=== PATIENT | female | born 1950 | race Caucasian/White ===

== ENCOUNTER 2018-02-22 08:30 | Inpatient (IN) | payer MEDICARE, BC ==
[2018-02-22 09:04] VITALS: BMI 27.4
[2018-03-06] MEDS ORDERED: Sodium Chloride 0.9% 100 ML ONE (06:20)
[2018-03-06] MEDS ORDERED: Fentanyl 100 MCG/2 ML VIAL ONE (06:20)
[2018-03-06] MEDS ORDERED: CEFAZOLIN 2 GM/50 ML BAG ONE (06:20)
[2018-03-06] MEDS ORDERED: Midazolam HCl 2 mg/2 ml Vial ONE (06:20)
[2018-03-06] MEDS ORDERED: Fentanyl 100 MCG/2 ML VIAL SLOW IVP PRN ×2 (06:53)
[2018-03-06] MEDS ORDERED: HYDROcodone/Acetaminophen 10/325 mg Tablet PO PRN ×2 (06:53)
[2018-03-06] MEDS ORDERED: Acetaminophen 325 MG TAB PO PRN (06:53)
[2018-03-06] MEDS ORDERED: Ondansetron PF 4 MG/2 ML Vial IVP PRN ×2 (06:53→07:00)
[2018-03-06] MEDS ORDERED: traMADol HCl 50 MG TAB PO PRN ×3 (06:53→07:00)
[2018-03-06] MEDS ORDERED: Promethazine HCl 25 MG/ML VIAL IM PRN ×2 (06:53→07:00)
[2018-03-06] MEDS ORDERED: diphenhydrAMINE 25 MG CAP PO PRN (06:53)
[2018-03-06] MEDS ORDERED: Zolpidem Tartrate 5 MG TAB PO PRN ×2 (06:53→07:00)
[2018-03-06] MEDS ORDERED: Naloxone HCl 0.4 mg/ml Vial IVP PRN (07:00)
[2018-03-06] MEDS ORDERED: diphenhydrAMINE 50 MG/ML VIAL IM PRN (07:00)
[2018-03-06] MEDS ORDERED: Hydrocerin (Eucerin) Cream 120 gm Jar TOP PRN (07:00)
[2018-03-06] MEDS ORDERED: diphenhydrAMINE 50 MG/ML VIAL IVP PRN (07:00)
[2018-03-06] MEDS ORDERED: Ketorolac Tromethamine 30 MG/ML VIAL IVP PRN (07:00)
[2018-03-06] MEDS ORDERED: Bupivacaine 0.25% 10 ML VIAL EPIDURAL PRN (07:00)
[2018-03-06] MEDS ORDERED: Promethazine HCl 25 MG SUPP PR PRN (07:00)
[2018-03-06] MEDS ORDERED: Naloxone HCl 0.4 mg/ml Vial IV PRN (07:00)
[2018-03-06] MEDS ORDERED: Bupivacaine HCl 0.5%/Epinephrine 1:200,000/PF 30 ml Vial ONE (07:04)
[2018-03-06] MEDS ORDERED: Fentanyl/Bupivacaine 100 ML EPIDURAL ONE (10:28)
[2018-03-06] MEDS ORDERED: Ketorolac Tromethamine 30 MG/ML VIAL ONE (10:47)
--- NOTE | 2018-03-06 11:41 | RAD ---
RIGHT KNEE TWO VIEWS: History: Knee replacement. FINDINGS: Total knee prosthesis is in place without perihardware lucency. Soft tissue gas is apparent. IMPRESSION: Right knee prosthesis is in good radiographic position. POS: [facility]
[2018-03-06] MEDS: Aspirin 81 mg Enteric Coated Tablet PO SCH ×2 (11:57→20:16)
[2018-03-06] MEDS: Multivitamin W/ Minerals 1 TAB PO SCH (11:58)
[2018-03-06] MEDS: Ferrous Gluconate 324 MG TAB PO SCH ×2 (11:58→20:15)
[2018-03-06] MEDS: Sodium Chloride 0.9% 1,000 ML IV SCH ×3 (11:58→17:50)
[2018-03-06] MEDS: Senokot S 8.6-50 MG TAB PO SCH ×2 (11:58→20:16)
--- NOTE | 2018-03-06 12:47 | OP ---
DATE OF PROCEDURE: 03/06/2018 PREOPERATIVE DIAGNOSIS: Degenerative joint disease, bilateral knees. POSTOPERATIVE DIAGNOSIS: Degenerative joint disease, bilateral knees. PROCEDURE: Bilateral total knee arthroplasty. SURGEON: Tahir Deras M.D. MASK DESIGNER: Mandeep Sequeira PA-C. BLOOD LOSS: Minimal. SPECIMEN: None. DRAINS: None. COMPLICATIONS: None. TOURNIQUET TIME: 49 minutes right and 49 minutes left knee. IMPLANTS USED: Vader Triathlon 3 femur, 9 mm CSX3 polyethylene, and a 9 mm #3 tibia and a 29 shahid la on both sides. PROCEDURE IN DETAIL: After informed consent was obtained in the preoperative holding area. The ashley ent was taken to the operative suite where general anesthesia was induced. Once adequate level of ge neral anesthesia was obtained, the patient was positioned and a well-padded tourniquet was placed wale und the left proximal thigh. The left lower extremity was then prepped and draped in the usual steri le fashion. Prior to exsanguination, a time out was called and all members of the surgical team agre ed upon site, surgeon, and patient. The extremity was then exsanguinated and the tourniquet was rais ed. A midline longitudinal incision was then made directly over the patella extending two fingerbrea dths above the superior pole of the patella and two fingerbreadths inferior to the inferior patellar pole of the patella. Deeper subcutaneous layers were dissected sharply and local bleeding was contro lled with Bovie electrocautery. A quad tendon longitudinal split was then made sharply and a median parapatellar arthrotomy was carried out both sharp and with Bovie electrocautery, carried down to one fingerbreadth medial to the tibial tubercle. The knee was then placed into flexion and the patella was everted nicely, and a copious fat pad ectomy was performed allowing for greater exposure of the t ibia. The computer-assisted distal femoral fiducial was then placed and pinned firmly, and the dista l femoral cutting guide was pinned firmly into place. The oscillating saw was then used to remove th e appropriate amount of bone. The 4-in-1 cutting block was then placed on the distal femur and the o scillating saw was used to remove the appropriate amount of bone off of the anterior, posterior, and chamfer cuts. After completion of bone cuts, the anterior cruciate ligament was resected sharply and the posterior cruciate ligament retractor was placed and the tibia was subluxed for better exposure. Partial meniscectomies were carried out, and the tibial computer-assisted fiducial was pinned, and the cutting guide was placed. Oscillating saw was then used to remove the bone with Hohmann retracto rs used to take care and protect the collateral ligaments. After the tibial resection was performed, a laminar veneer lathe operator was placed in between the freshened bone cuts. The knee placed at 90 degrees and further bilateral meniscectomies were carried out, and the curved osteotome and curettage was used t o remove any excess bone spurs in the posterior compartment. The trial femoral component, tibial bas eplate were placed with the appropriate polyethylene trial insert with an appropriate polyethylene sp acer and patellar button. The knee was taken through full range of motion with flexion and extension from 0-90 degrees and patellar broach squarely in the trochlea without any squinting or subluxation noted. The knee was also stable to varus and valgus stressing at 0, 15, 45, and 90 degrees of flexio n. The drawer was negative. All trial components were then removed and the keel punch was used to pr ovide the appropriate defect in the tibia with a mallet. The freshened bone cuts were copiously irri gated with pulsatile lavage of about 1-1/2 liters to remove all excess debris. The freshened bone cu ts were then dried and with suction and lap sponge. The knee was placed in flexion and retractors we re placed to provide access to all bone cuts. Tobramycin impregnated methyl methacrylate cement was then placed on the freshened bone cuts and implants which were malleted firmly into place. Curettage and Reddick elevators were used to remove any excess bone cement. The knee was placed into full exten mitzy and the patellar button was placed under compression, and the cement was allowed to cure. Once completed, the components were again taken through full range of motion and copious irrigation of the knee was carried out with another liter of normal saline. All components were inspected fully with full range of motion and varus and valgus stressing. There was no laxity noted and full extension was observed clinically. Primary closure was accomplished with #2 interrupted Vicryl stitch of the arth rotomy defect. This was oversewn with a #2 running Quill barbed stitch. The gravitational platelet system was then injected into the arthrotomy prior to closure. The subcutaneous layer was then close d with a running 0 barbed Monocryl stitch and skin closure accomplished with a running subcuticular 3 -0 Monocryl barbed Quill stitch and augmented with cement on the skin. Tourniquet was lowered. Good spontaneous return of distal pulses was noted clinically and a sterile dressing was applied to the i ncision. The procedure was terminated without any complications. The patient was awakened in the op erative suite and the tourniquet was removed. PROCEDURE IN DETAIL: After informed consent was obtained in the preoperative holding area. The ashley ent was taken to the operative suite where general anesthesia was induced. Once adequate level of ge neral anesthesia was obtained, the patient was positioned and a well-padded tourniquet was placed wale und the right proximal thigh. The right lower extremity was then prepped and draped in the usual blilie rile fashion. Prior to exsanguination, a time out was called and all members of the surgical team ag ness upon site, surgeon, and patient. The extremity was then exsanguinated and the tourniquet was ra ised. A midline longitudinal incision was then made directly over the patella extending two fingerbr eadths above the superior pole of the patella and two fingerbreadths inferior to the inferior patella r pole of the patella. Deeper subcutaneous layers were dissected sharply and local bleeding was cont rolled with Bovie electrocautery. A quad tendon longitudinal split was then made sharply and a media n parapatellar arthrotomy was carried out both sharp and with Bovie electrocautery, carried down to o ne fingerbreadth medial to the tibial tubercle. The knee was then placed into flexion and the patell a was everted nicely, and a copious fat pad ectomy was performed allowing for greater exposure of the tibia. The computer-assisted distal femoral fiducial was then placed and pinned firmly, and the dis alexa femoral cutting guide was pinned firmly into place. The oscillating saw was then used to remove the appropriate amount of bone. The 4-in-1 cutting block was then placed on the distal femur and the oscillating saw was used to remove the appropriate amount of bone off of the anterior, posterior, an d chamfer cuts. After completion of bone cuts, the anterior cruciate ligament was resected sharply a nd the posterior cruciate ligament retractor was placed and the tibia was subluxed for better exposur e. Partial meniscectomies were carried out, and the tibial computer-assisted fiducial was pinned, an d the cutting guide was placed. Oscillating saw was then used to remove the bone with Hohmann retrac tors used to take care and protect the collateral ligaments. After the tibial resection was performe d, a laminar veneer lathe operator was placed in between the freshened bone cuts. The knee placed at 90 degrees a nd further bilateral meniscectomies were carried out, and the curved osteotome and curettage was used to remove any excess bone spurs in the posterior compartment. The trial femoral component, tibial b aseplate were placed with the appropriate polyethylene trial insert with an appropriate polyethylene spacer and patellar button. The knee was taken through full range of motion with flexion and extensi on from 0-90 degrees and patellar broach squarely in the trochlea without any squinting or subluxatio n noted. The knee was also stable to varus and valgus stressing at 0, 15, 45, and 90 degrees of flex ion. The drawer was negative. All trial components were then removed and the keel punch was used to provide the appropriate defect in the tibia with a mallet. The freshened bone cuts were copiously ir rigated with pulsatile lavage of about 1-1/2 liters to remove all excess debris. The freshened bone cuts were then dried and with suction and lap sponge. The knee was placed in flexion and retractors were placed to provide access to all bone cuts. Tobramycin impregnated methyl methacrylate cement wa s then placed on the freshened bone cuts and implants which were malleted firmly into place. Curetta ge and Reddick elevators were used to remove any excess bone cement. The knee was placed into full ext ension and the patellar button was placed under compression, and the cement was allowed to cure. Onc e completed, the components were again taken through full range of motion and copious irrigation of t he knee was carried out with another liter of normal saline. All components were inspected fully wit h full range of motion and varus and valgus stressing. There was no laxity noted and full extension w as observed clinically. Primary closure was accomplished with #2 interrupted Vicryl stitch of the lauren moctezumatomy defect. This was oversewn with a #2 running Quill barbed stitch. The gravitational platele t system was then injected into the arthrotomy prior to closure. The subcutaneous layer was then ada sed with a running 0 barbed Monocryl stitch and skin closure accomplished with a running subcuticular 3-0 Monocryl barbed Quill stitch and augmented with cement on the skin. Tourniquet was lowered. Go od spontaneous return of distal pulses was noted clinically and a sterile dressing was applied to the incision. The procedure was terminated without any complications. The patient was awakened in the operative suite and the tourniquet was removed, and the patient was taken to the recovery room in sta ble condition.
--- NOTE | 2018-03-06 12:54 | RAD ---
LEFT KNEE 2 VIEWS: HISTORY: Knee replacement. FINDINGS: A left knee prosthesis is in place without perihardware lucency. Tiny metallic density overlies the posterior intercondylar space. Gas and fluid are present within the soft tissues and suprapatellar b ursa. IMPRESSION: Left knee prosthesis is in place. Tiny metallic density just posterior to the intercondylar space. POS: [facility]
[2018-03-06] MEDS: CEFAZOLIN 2 GM/50 ML BAG IVPB SCH ×2 (13:31→21:58)
[2018-03-06] MEDS: Ketorolac Tromethamine 30 MG/ML VIAL IVP SCH ×2 (13:32→21:58)
--- NOTE | 2018-03-06 13:54 | CON ---
DATE OF CONSULTATION: 03/06/2018 HISTORY OF PRESENT ILLNESS: This is a 68-year-old white female with a history of hyperlipidemia who is postop day #0, status post bilateral total knee replacements by Dr. Deras this morning. The proc edure went well. The patient is awake, somewhat sedated, but conversing. No complaints of any pain at this time. PAST MEDICAL HISTORY: Hyperlipidemia, allergies, arthritis, overactive bladder, reflux. PAST SURGICAL HISTORY: 1. x2. 2. Fibroid surgery. 3. Colonoscopy 2009. 4. History of right knee arthroscopy. 5. Endometriosis surgery in 1988. FAMILY HISTORY: Father at 84 with a motor vehicle accident. Mother with history of allergi es. Maternal grandfather with heart disease. SOCIAL HISTORY: She is a nonsmoker. She is . She has 2 daughters. 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 MEDICATIONS: Crestor 5 daily, Protonix 40 daily, Lodine 400 b.i.d. p.r.n. ALLERGIES: None. REVIEW OF SYSTEMS: As above. PHYSICAL EXAMINATION: VITAL SIGNS: Stable, afebrile. Temperature 97.0, blood pressure 90/51. HEENT: Clear. HEART: Regular rate and rhythm. LUNGS: Clear. ABDOMEN: Soft, nontender. EXTREMITIES: With no edema. Knees wrapped with Riley bandages. LABORATORY: None. ASSESSMENT: 1. Postop day #0, status post bilateral total knee replacements. 2. Hyperlipidemia. PLAN: 1. Routine postoperative care. 2. Continue Crestor and Protonix. 3. We will continue to follow.
[2018-03-06] MEDS: diphenhydrAMINE 25 MG CAP PO PRN ×2 (15:40→23:25)
[2018-03-06] MEDS ORDERED: PROPOFOL 200 MG/20 ML VIAL ONE (17:44)
[2018-03-06] MEDS ORDERED: Ondansetron PF 4 MG/2 ML Vial ONE (17:44)
[2018-03-06] MEDS ORDERED: PHENYLEPHRINE-NS 100 MCG/ML 10 ML SYRINGE ONE (17:44)
[2018-03-06] MEDS ORDERED: ePHEDrine/0.9% NaCl/PF SYRINGE 50 mg/10 ml ONE (17:44)
[2018-03-06] MEDS ORDERED: Lidocaine 1% PF 5 ML VIAL ONE (17:44)
[2018-03-06] MEDS: HYDROcodone/Acetaminophen 5/325 mg Tablet PO PRN (20:17)
[2018-03-07] MEDS: Fentanyl/Bupivacaine 100 ML EPIDURAL SCH ×2 (02:26→16:57)
[2018-03-07] MEDS: HYDROcodone/Acetaminophen 5/325 mg Tablet PO PRN ×2 (02:48→09:14)
[2018-03-07 04:23] LABS: Hemoglobin 9.9 g/dL (12.0-16.0); Mean Corpuscular HGB CONC 33.3 g/dL (32.0-36.0); Mean Corpuscular Hemoglobin 30.5 pg (27.0-31.0); Mean Corpuscular Volume 91.6 fL (78.0-98.0); Mean Platelet Volume 7.5 fL (7.4-10.4); Platelet Count 198 thou/uL (130-400); RBC Distribution Width 10.8 % (11.5-14.5); Red Blood Cell (RBC) Count 3.24 mill/uL (4.20-5.40); White Blood Cell (WBC) Count 9.1 thou/uL (4.8-10.8)
[2018-03-07] MEDS: Ketorolac Tromethamine 30 MG/ML VIAL IVP SCH ×3 (06:17→21:24)
[2018-03-07] MEDS: Sodium Chloride 0.9% 1,000 ML IV SCH ×2 (07:23→15:01)
--- NOTE | 2018-03-07 08:03 | PRG ---
DATE OF SERVICE: 03/07/2018 SUBJECTIVE: The patient is doing well postop day #1, status post bilateral total knee replacement. She does complain of pruritus. No complaints of any chest pain or shortness of breath. OBJECTIVE: VITAL SIGNS: Temperature 99.6, pulse 89, respirations 16, pulse oximetry 94, blood pressure 101/56. HEART: Regular rate and rhythm. LUNGS: Clear. ABDOMEN: Soft. EXTREMITIES: With no edema. LABORATORY: White count 9.1, H&H 9.9 and 29.7. ASSESSMENT: 1. Postop day #1, status post bilateral total knee replacement, doing well. 2. Hyperlipidemia. PLAN: 1. Continue routine postop care. 2. PT for today. 3. Continue Crestor and Protonix. 4. We will continue to follow. 5. Benadryl for pruritus.
[2018-03-07] MEDS ORDERED: Prevnar 13-Val Conj/PF 0.5 ML SYRINGE IM ONE (09:00)
[2018-03-07] MEDS: Aspirin 81 mg Enteric Coated Tablet PO SCH ×2 (09:13→21:26)
[2018-03-07] MEDS: Ferrous Gluconate 324 MG TAB PO SCH ×2 (09:13→21:26)
[2018-03-07] MEDS: Multivitamin W/ Minerals 1 TAB PO SCH (09:13)
[2018-03-07] MEDS: Senokot S 8.6-50 MG TAB PO SCH ×2 (09:14→21:25)
[2018-03-07] MEDS: Rosuvastatin 5 MG TAB PO SCH (09:14)
[2018-03-08] MEDS: Sodium Chloride 0.9% 1,000 ML IV SCH ×2 (01:12→08:15)
[2018-03-08 05:27] LABS: Mean Corpuscular HGB CONC 32.3 g/dL (32.0-36.0); Mean Corpuscular Hemoglobin 29.7 pg (27.0-31.0); Mean Corpuscular Volume 91.9 fL (78.0-98.0); Mean Platelet Volume 7.7 fL (7.4-10.4); Platelet Count 186 thou/uL (130-400); RBC Distribution Width 10.8 % (11.5-14.5); Red Blood Cell (RBC) Count 3.37 mill/uL (4.20-5.40); White Blood Cell (WBC) Count 9.3 thou/uL (4.8-10.8)
[2018-03-08] MEDS: Ketorolac Tromethamine 30 MG/ML VIAL IVP SCH ×2 (06:26→15:03)
--- NOTE | 2018-03-08 07:57 | PRG ---
DATE OF SERVICE: 03/08/2018 SUBJECTIVE: Postop day #2 status post bilateral knee replacement. Doing well. Participated in phys ica therapy yesterday. No complaints of any chest pain or shortness of breath. OBJECTIVE: VITAL SIGNS: Temperature 98.1, pulse 102, respirations 18, pulse ox 94, blood pressure 131/59. HEART: Regular rate and rhythm. LUNGS: Clear. ABDOMEN: Soft. EXTREMITIES: With no edema. LABORATORY: H&H 10.0 and 31.0. ASSESSMENT: 1. Postop day #2 status post bilateral total knee replacement. 2. Hyperlipidemia. PLAN: 1. Continue with routine [facility]. 2. Awaiting acceptance to [facility] for further physical therapy. 3. Continue Crestor and Protonix.
[2018-03-08] MEDS: Multivitamin W/ Minerals 1 TAB PO SCH (08:10)
[2018-03-08] MEDS: Senokot S 8.6-50 MG TAB PO SCH (08:10)
[2018-03-08] MEDS: Rosuvastatin 5 MG TAB PO SCH (08:10)
[2018-03-08] MEDS: Aspirin 81 mg Enteric Coated Tablet PO SCH (08:11)
[2018-03-08] MEDS: Ferrous Gluconate 324 MG TAB PO SCH (08:11)
[2018-03-08] MEDS: HYDROcodone/Acetaminophen 5/325 mg Tablet PO PRN (11:23)
[2018-03-08 11:55] VITALS: BP 114/62; TEMP 97.9
[2018-03-08] MEDS ORDERED: HYDROcodone/Acetaminophen 10/325 mg Tablet PO PRN ×2 (12:26→12:27)
== END 2018-03-08 15:23 | DRG 462 ==
LOC: SURG A 03-06 05:34
PROVIDERS: ADMIT Orthopaedic Surgery; ATTEND Orthopaedic Surgery
PROC: 0SRD0J9 Replacement of Left Knee Joint with Synthetic Substitute, Cemented, Open Approach (ICD-10-PCS; principal; 2018-03-06)
PROC: 0SRC0J9 Replacement of Right Knee Joint with Synthetic Substitute, Cemented, Open Approach (ICD-10-PCS; 2018-03-06)
PROC: 3E02340 Introduction of Influenza Vaccine into Muscle, Percutaneous Approach (ICD-10-PCS; 2018-03-06)
DX: M17.0 Bilateral primary osteoarthritis of knee (principal); E78.5 Hyperlipidemia, unspecified; K21.9 Gastro-esophageal reflux disease without esophagitis; Z23 Encounter for immunization
CPT/HCPCS: 36415; 85027; 90471; 90662; C1713; C1776; G0008; G8978-GP-CL; G8979-GP-CI; G8987-GO-CL; G8988-GO-CI; J0670; J1200; J1885; J2001; J2250; J2405; J2704; J3010; J3370; J7050

== ENCOUNTER 2018-03-02 15:38 | Outpatient (CLI) | payer MEDICARE, BC ==
[2018-02-22 10:17] LABS: #Eosinphils 0.1 thou/uL (0.0-0.7); #Lymphocytes 1.8 thou/uL (1.20-3.40); #Monocytes 0.7 thou/uL (0.11-0.59); #Neutrophils 3.4 thou/uL (1.40-6.50); %Basophils 0.8 % (0.0-1.0); %Eosinophils 1.5 % (0.0-10.0); %Lymphocytes 29.3 % (21.0-51.0); %Monocytes 10.9 % (0.0-10.0); %Neutrophils 57.5 % (42.0-75.0); Hemoglobin 14.7 g/dL (12.0-16.0); Mean Corpuscular HGB CONC 33.3 g/dL (32.0-36.0); Mean Corpuscular Volume 90.2 fL (78.0-98.0); Mean Platelet Volume 7.5 fL (7.4-10.4); Platelet Count 302 thou/uL (130-400); RBC Distribution Width 11.2 % (11.5-14.5); Red Blood Cell (RBC) Count 4.89 mill/uL (4.20-5.40)
[2018-02-22 10:20] LABS: Bilirubin Large (Negative); Blood, Urine Negative (Negative); Clarity CLEAR (Clear); Glucose, Urine (Dipstick) Negative (Negative); Leukocyte Negative (Negative); Nitrite Negative (Negative); Protein, Urine (Dipstick) Negative (Neg-Trace); Specific Gravity, Urine 1.012 (1.002-1.036); Urobilinogen 0.2 mg/dL (0.2-1.0)
[2018-02-22 10:36] LABS: Prothrombin Time 12.9 SEC (12.0-14.7)
[2018-02-22 10:37] LABS: Anion Gap 14 mmol/L (10-20); BUN (Urea Nitrogen) 18 mg/dL (9.8-20.1); Calc. Creatinine Clearance 0 mL/min (70-130); Calcium 9.9 mg/dL (7.8-10.44); Carbon Dioxide 26 mmol/L (23-31); Chloride 100 mmol/L (98-107); Estimated GFR-MDRD 68; Glucose 81 mg/dL (80-115); Potassium 4.5 mmol/L (3.5-5.1); Sodium 135 mmol/L (136-145)
--- NOTE | 2018-02-22 13:27 | RAD ---
CHEST 2 VIEWS: INDICATION: Preop evaluation. COMPARISON: None. FINDINGS: The lungs are clear. Cardiomediastinal silhouette is within normal limits. No acute osseous abnorma lity is evident. IMPRESSION: No acute cardiopulmonary abnormality. POS: [facility]
--- NOTE | 2018-02-24 08:30 | EKG ---
Test Reason : Blood Pressure : / mmHG Vent. Rate : 073 BPM Atrial Rate : 073 BPM P-R Int : 122 ms QRS Dur : 088 ms QT Int : 394 ms P-R-T Axes : 046 032 065 degrees QTc Int : 434 ms Normal sinus rhythm with sinus arrhythmia Normal ECG No previous ECGs available Confirmed by GIL SANCHEZ ([id number]) on 02/24/2018 8:30:10 AM Referred By: KAYLEY Confirmed By:GIL SANCHEZ
== END 2018-03-02 15:39 | disposition home or self-care (01) ==
LOC: LABBT 15:38
PROVIDERS: ATTEND Orthopaedic Surgery
DX: Z01.818 Encounter for other preprocedural examination (principal); M17.0 Bilateral primary osteoarthritis of knee
CPT/HCPCS: 71046; 80048; 81003; 85025; 85610; 86850; 86900; 86901; 87081; 93005; 93010

== ENCOUNTER 2021-05-13 09:32 | Outpatient (CLI) | payer MEDICARE, BC | END 2021-05-13 09:33 | disposition home or self-care (01) | LOC: RAD 09:32 | PROVIDERS: ATTEND Family Medicine | DX: M54.6 Pain in thoracic spine (principal); M47.814 Spondylosis without myelopathy or radiculopathy, thoracic region; M41.9 Scoliosis, unspecified | CPT/HCPCS: 72072 ==

== ENCOUNTER 2021-09-23 09:02 | Outpatient (CLI) | payer MEDICARE, BC | END 2021-09-23 09:03 | disposition home or self-care (01) | LOC: CT 09:02 | PROVIDERS: ATTEND Family Medicine | DX: R10.30 Lower abdominal pain, unspecified (principal); D25.9 Leiomyoma of uterus, unspecified; E27.8 Other specified disorders of adrenal gland; Z90.5 Acquired absence of kidney | CPT/HCPCS: 74178 ==

== ENCOUNTER 2021-09-28 16:30 | Outpatient (CLI) | payer MEDICARE, BC | END 2021-09-28 16:31 | disposition home or self-care (01) | LOC: SLEEPLAB 16:30 | PROVIDERS: ATTEND Family Medicine | DX: R53.83 Other fatigue (principal); R40.0 Somnolence; R06.83 Snoring; G47.00 Insomnia, unspecified; G47.33 Obstructive sleep apnea (adult) (pediatric) | CPT/HCPCS: 95800 ==

== ENCOUNTER 2021-11-29 19:00 | Outpatient (CLI) | payer MEDICARE, BC | END 2021-11-29 19:01 | disposition home or self-care (01) | LOC: SLEEPLAB 19:00 | PROVIDERS: ATTEND Family Medicine | DX: G47.33 Obstructive sleep apnea (adult) (pediatric) (principal); G47.00 Insomnia, unspecified; R06.83 Snoring; R53.83 Other fatigue; R40.0 Somnolence | CPT/HCPCS: 95811 ==

== ENCOUNTER 2022-06-14 08:00 | Outpatient (CLI) | payer MEDICARE, BC ==
[2022-06-14] MEDS ORDERED: Iopamidol 370 76% 100 ML VIAL ONE (12:11)
== END 2022-06-14 08:01 | disposition home or self-care (01) ==
LOC: CT 08:00
PROVIDERS: ATTEND Family Medicine
DX: E27.8 Other specified disorders of adrenal gland (principal)
CPT/HCPCS: 74160; Q9967

== ENCOUNTER 2024-01-30 14:03 | Outpatient (CLI) | payer MEDICARE | END 2024-01-30 14:04 | disposition home or self-care (01) | LOC: BICMAMMO 14:03 | PROVIDERS: ATTEND Obstetrics & Gynecology | DX: Z12.31 Encounter for screening mammogram for malignant neoplasm of breast (principal); Z91.89 Other specified personal risk factors, not elsewhere classified | CPT/HCPCS: 77067 ==

== ENCOUNTER 2024-04-26 08:19 | Outpatient (CLI) | payer MEDICARE ==
[2024-04-26] MEDS ORDERED: Iopamidol 370 76% 100 ML VIAL ONE (10:46)
== END 2024-04-26 08:20 | disposition home or self-care (01) ==
LOC: CT 08:19
PROVIDERS: ATTEND Family Medicine
DX: E27.9 Disorder of adrenal gland, unspecified (principal); N26.1 Atrophy of kidney (terminal)
CPT/HCPCS: 74170; Q9967